=== PATIENT | female | born 1970 | race Two or more races ===

== ENCOUNTER 2022-11-16 14:31 | Emergency (ER) | payer MEDICAID, OTHER ==
[~2022-11-16] VITALS: Ht 167.6 cm; Wt 81.8 kg
[2022-11-16 15:14] LABS: Basophils # (auto) 0.1 10 ^3/uL (0-0.2); Basophils % (auto) 0.9 % (0.0-2.0); Eosinophils # (auto) 0.1 10 ^3/uL (0-0.8); Eosinophils % (auto) 0.9 % (0.0-7.0); Hemoglobin 12.8 g/dL (12.2-16.2); Lymphocytes # (auto) 2.5 10 ^3/uL (0.4-5.4); Lymphocytes % (auto) 24.4 % (10.0-50.0); Mean Corpuscular Hemoglobin 28.5 pg (28.0-32.0); Mean Corpuscular Hgb Conc. 33.6 g/dL (32.0-36.0); Mean Corpuscular Volume 84.8 fL (80.0-100.0); Monocytes # (auto) 0.9 10 ^3/uL (0-1.3); Monocytes % (auto) 9.1 % (0.0-12.0); Neutrophils # (auto) 6.7 10 ^3/uL (1.6-8.6); Neutrophils % (auto) 64.7 % (37.0-80.0); Red Blood Cells 4.48 10^6/uL (4.0-5.20); Red Cell Distribution Width 14.1 % (11.8-14.3); White Blood Cell 10.4 10^3/uL (4.4-10.8)
[2022-11-16 15:15] LABS: Urine Bacteria NONE SEEN /hpf (None Seen); Urine Blood Negative /uL (Negative); Urine Specific Gravity 1.002 (1.001-1.035); Urine WBC 20 /hpf (0 - 5)
[2022-11-16 15:32] LABS: Albumin 3.4 g/dL (3.4-5.0); Calcium 8.1 mg/dL (8.5-10.1); Magnesium 2.4 mg/dL (1.6-2.6); Potassium 3.7 mmol/L (3.5-5.1)
[2022-11-16 15:35] LABS: Amphetamine Screen, Urine NEGATIVE (NEGATIVE); Barbiturate Scree,Urine NEGATIVE (NEGATIVE); Benzodiazephine Screen, Urine NEGATIVE (NEGATIVE); Cannabinoid Screen, Urine NEGATIVE (NEGATIVE); Cocaine Screen, Urine NEGATIVE (NEGATIVE); Opiate Scree,Urine NEGATIVE (NEGATIVE); Phencyclidine Screen, Urine NEGATIVE (NEGATIVE)
[2022-11-16 15:36] LABS: BUN/Creatinine Ratio 13.4 (10.0-20.0); Bilirubin, Total 0.2 mg/dL (0.2-1.0)
[2022-11-16 15:46] VITALS: PULSE 80; RESP 15; O2SAT 94
[2022-11-16] MEDS ORDERED: EPINEPHrine HCL 1 MG/1 ML AMP ONE (15:54)
[2022-11-16] MEDS ORDERED: DexAMETHasone SOD PHOS 10MG/1ML VIAL INJ IV ONE (16:00)
[2022-11-16] MEDS ORDERED: DexAMETHasone SOD PHOS 4 MG/1ML SDV INJ ONE (16:03)
[2022-11-16] MEDS ORDERED: DexAMETHasone SOD PHOS 4 MG/1ML SDV INJ IV ONE (16:15)
[2022-11-16] MEDS ORDERED: EPINEPHrine HCL 1 MG/1 ML AMP SC ONE (16:15)
[2022-11-16] MEDS ORDERED: SODIUM CHLORIDE 0.9% 1,000 ML IV ONE ×2 (16:30)
[2022-11-16] MEDS ORDERED: DIPH25CA2 PO ×3 (18:01→18:38)
[2022-11-16] MEDS ORDERED: PRED20TA2 PO ×3 (18:01→18:38)
[2022-11-16 19:00] VITALS: BP 128/79; PULSE 85; RESP 19; O2SAT 96
== END 2022-11-16 19:15 | disposition home or self-care (01) ==
LOC: EDBD 14:31 → ER 14:31
DX: R41.82 Altered mental status, unspecified (principal); F10.10 Alcohol abuse, uncomplicated; N30.90 Cystitis, unspecified without hematuria; T88.6XXA Anaphylactic reaction due to adverse effect of correct drug or medicament properly administered, initial encounter; R07.89 Other chest pain; I10 Essential (primary) hypertension; J45.909 Unspecified asthma, uncomplicated; Z79.899 Other long term (current) drug therapy; Y92.89 Other specified places as the place of occurrence of the external cause
CPT/HCPCS: 36415; 71045; 80053; 80307; 80320; 81001; 81025; 83735; 85025; 93005; 96361; 96372; 96374; 99285; J0171; J1100; J7030